=== PATIENT | female | born 1990 | race American Indian/Alaskan Native ===

== ENCOUNTER 2016-12-14 02:54 | Inpatient (IN) | payer OTHER ==
[2016-12-14] MEDS ORDERED: Acetaminophen TAB* 325 MG PO PRN (18:14)
[2016-12-14] MEDS ORDERED: Witch Hazel PAD* JAR TOPICAL PRN (18:14)
[2016-12-14] MEDS ORDERED: Dibucaine 1% 28.35 GM TUBE PR PRN (18:14)
[2016-12-14] MEDS: Ibuprofen TAB* 600 MG PO PRN (18:52)
[2016-12-14] MEDS: Docusate CAP* 100 MG PO SCH (20:38)
[2016-12-15 06:31] LABS: Hematocrit 32 % (35-47); Hemoglobin 10.5 g/dl (12.0-16.0); Mean Corpuscular HGB Conc 33 g/dl (31-36); Mean Corpuscular Hemoglobin 30 pg (27-31); Mean Corpuscular Volume 91 fL (80-97); Mean Platelet Volume 11 um3 (7.4-10.4); Red Blood Count 3.48 10^6/ul (4.0-5.4); Red Cell Distribution Width 15 % (10.5-15); White Blood Count 16.3 10^3/ul (3.5-10.8)
[2016-12-15] MEDS: Ibuprofen TAB* 600 MG PO PRN ×2 (06:31→21:32)
[2016-12-15] MEDS ORDERED: Ferrous Gluconate TAB* 324 MG TAB PO SCH (09:00)
[2016-12-15] MEDS: Docusate CAP* 100 MG PO SCH ×3 (09:08→21:32)
[2016-12-16 08:24] VITALS: BP 126/74
[2016-12-16] MEDS: Ibuprofen TAB* 600 MG PO PRN (09:45)
[2016-12-16] MEDS: Docusate CAP* 100 MG PO SCH (09:45)
== END 2016-12-16 12:20 | disposition home or self-care (01) | DRG 775 ==
LOC: MCHOBOUT 02:54 → MCHOB 09:02
PROVIDERS: ADMIT Midwife; ATTEND Midwife
PROC: 10E0XZZ Delivery of Products of Conception, External Approach (ICD-10-PCS; principal; 2016-12-14)
PROC: 0KQM0ZZ Repair Perineum Muscle, Open Approach (ICD-10-PCS; 2016-12-14)
PROC: 10907ZC Drainage of Amniotic Fluid, Therapeutic from Products of Conception, Via Natural or Artificial Opening (ICD-10-PCS; 2016-12-14)
DX: O48.0 Post-term pregnancy (principal); O69.81X0 Labor and delivery complicated by cord around neck, without compression, not applicable or unspecified; O70.1 Second degree perineal laceration during delivery; Z3A.40 40 weeks gestation of pregnancy; Z37.0 Single live birth
CPT/HCPCS: 36415; 85025; A9270-GY

== ENCOUNTER 2019-01-15 20:46 | Emergency (ER) | payer OTHER ==
[2019-01-15 20:53] VITALS: BP 129/75
--- NOTE | 2019-01-15 21:16 | UC ---
FLU HPI - HPI Summary HPI Summary: Pt is a 28 yo female, 2nd trimester. Pt's 2 yo daugher with fever, congestion last week - not tested - presumed flu. Pt presents at suggestion of nurse size worker for eval of 24 hours fatigue, low grade temp, cough - non productive, slight wheeze, nausea. no vomiting no diarrhea. No OTC meds taking Pt reports good baby meeting - no vaginal LOB Medications reviewed - History of Current Complaint Chief Complaint: UCRespiratory Stated Complaint: COUGH Time Seen by Provider: 01/15/19 21:03 Hx Obtained From: Patient ?: Yes Onset/Duration: Gradual Onset Pain Intensity: 0 - Allergy/Home Medications Allergies/Adverse Reactions: Allergies Allergy/AdvReac Type Severity Reaction Status Date / Time Penicillins Allergy Rash Verified 01/15/19 20:53 Home Medications: Home Medications Vitamin TAB* 1 tab PO DAILY 01/15/19 [History Confirmed 01/15/19] PMH/Surg Hx/FS Hx/Imm Hx Previously Healthy: Yes - Surgical History Surgical History: None - Family History Known Family History: Positive: Other - 2 yo with febrile illness last week, Non -Contributory - Social History Occupation: Employed Full-time Lives: With Family Alcohol Use: None Substance Use Type: None Smoking Status (MU): Never Smoked Tobacco - Immunization History Most Recent Influenza Vaccination: 08/2016 Most Recent Tetanus Shot: 08/2016 Most Recent Pneumonia Vaccination: none Review of Systems All Other Systems Reviewed And Are Negative: Yes Constitutional: Positive: Fever, Fatigue ENT: Positive: Nasal Discharge, Sinus Pain/Tenderness Respiratory: Positive: Cough. Negative: Shortness Of Breath Cardiovascular: Positive: Negative Gastrointestinal: Positive: Nausea. Negative: Vomiting Physical Exam - Summary Physical Exam Summary: Vital Signs Reviewed: Yes A+Ox3, no distress Eyes: Conjunctiva Clear, BASSEM. EOM intact and full ENT: Hearing grossly normal TM x 2 clear, turbinates inflammed and boggy, + PNDmmoist, uvula midline, no exudate, no erythema Neck: Positive: Supple Respiratory: Positive: No respiratory distress, No accessory muscle use speaknig full easy sentences, intermittent cough, slight end ex wheeze Cardiovascular: RRR nl s1, s2 no m/r CBT <2 sec abd soft gravid, + BS nt/nd no guarding, no distension Musculoskeletal Exam: RAYO x 4 without difficulty Strength Intact, ROM Intact Neurological: Positive: Alert, + sensation throughout Psychological: Positive: Normal Response To Family Skin: Positive: no rash, no ecchymosis Triage Information Reviewed: Yes Vital Signs: Initial Vital Signs Temp 98.5 F 01/15/19 20:50 Pulse 89 01/15/19 20:50 Resp 16 01/15/19 20:50 BP 129/75 01/15/19 20:50 Pulse Ox 100 01/15/19 20:50 Re-Evaluation - Re-Evaluation First Eval Change: Improved - Pt states breathing improved after neb wheeze resolved flu neg d/w pt prophylatic tamiflu will send Rx - pt will dw it coordinator tomorrow MDI humidified air secretion precaution strict return precautions pt comfortable and kendra greement with plan Flu Course/Dx - Course Course Of Treatment: pt with 24 hours fever, cough, congestion - here for flu test + . VSS. Pt with boggy turbinates and slight exp wheeze with cough. flu neg. will give neb an dreasses - Differential Dx/Diagnosis Provider Diagnosis: URI (upper respiratory infection), Viral syndrome Discharge - Sign-Out/Discharge Documenting (check all that apply): Patient Departure All imaging exams completed and their final reports reviewed: No Studies - Discharge Plan Condition: Stable Disposition: HOME Prescriptions: Oseltamivir Phosphate [Tamiflu] 75 mg PO DAILY #10 capsule Patient Education Materials: Upper Respiratory Infection (ED), Viral Syndrome ( ED) Referrals: Malika Queen MD [Primary Care Provider] - [facility] [Provider Group] Additional Instructions: - Stay well hydrated. Drink plenty of non-alcoholic, non-caffinated beverages. - okay to take Tylenol every 6- 8 hours for fever. You should not take ibuprofen (Advil, Motrin) at this stage of your . - These infections are spread by secretions - do NOT share eating or drinking utensils - clean items you share with other people such as cell phones, computer mouse, TV remote, computer tablets,etc. Once you start to feel better, change your toothbrush and your pillowcase. - get plenty of restful sleep - humidify the air in the room where you sleep - boil water, run a hot steam shower, vaporizer, cups of water by heat register - Use inhaler - 2 puffs every 4 hours as needed for shortness of breath or wheeze - As discussed - your influenza swap was negative for flu A + B. A prescription for Tamiflu prophylaxis was sent to your pharmacy. Discuss with your Nurse Investment Recovery Technician tomorrow if you should start taking - If you develop shortness of breath, painful breathing, or ANY other concerns you should go to the emergency department for further evaluation - contact your doctor or return with questions or concerns - Billing Disposition and Condition Condition: STABLE Disposition: Home
[2019-01-15 21:29] LABS: Influenza A Molecular NEGATIVE (Negative); Influenza B Molecular NEGATIVE (Negative)
[2019-01-15] MEDS ORDERED: Albuterol HFA INHALER* 8 gm MDI INH ONE (21:36)
== END 2019-01-15 21:50 | disposition home or self-care (01) ==
LOC: UCEAST 20:46
DX: O99.512 Diseases of the respiratory system complicating pregnancy, second trimester (principal); O98.512 Other viral diseases complicating pregnancy, second trimester; O99.89 Other specified diseases and conditions complicating pregnancy, childbirth and the puerperium; B34.9 Viral infection, unspecified; J06.9 Acute upper respiratory infection, unspecified; R11.0 Nausea; Z88.0 Allergy status to penicillin
CPT/HCPCS: 99213; A9270-GY; G0463

== ENCOUNTER 2019-03-26 06:44 | Inpatient (IN) | payer OTHER ==
--- NOTE | 2019-03-26 08:05 | HP ---
General Information - Reason for Visit 28 yo at 40 2/7 weeks with contractions beginning at 0400 - General Information Maternal Age: 28 Grav: 2 Para: 0 SAB: 0 IEA: 0 Estimated Due Date: 03/24/19 Determined By: LMP Gestational Age in Weeks/Days: 40 2/7 Maternal Blood Type and Rh: A Positive - Results this Serology/RPR Result: Non-Reactive Rubella Result: Immune HBsAg Result: Negative HIV Result: Negative GBS Culture Result: Negative Past Medical History Delivery History: Hx Uncomplicated Vaginal Delivery Pertinent Past Medical History: See Records Past Medical History Comment: UTI/Urethral dilation 02/2016 Pertinent Past Surgical History: None Pertinent Family History: See Records Family History Comment: Father: Diabetes Type 2 Mother: Anxiety, Depression, Fibromyalgia - Antepartal Records Antepartal Records: Reviewed, Uncomplicated Review of Systems Constitutional: Uncomfortable CV Complaint: No Respiratory: Shortness of Breath: No Gastrointestinal: No Nausea/Vomiting, Normal Bowel Movement Genitourinary: No Dysuria, No Bleeding, No Leaking Fluid Musculoskeletal: No Epigastric Pain, Contractions Neurological: No Headache, No Visual Changes Movement: Normal Exam Allergies/Adverse Reactions: Allergies Penicillins Allergy (Verified 03/26/19 07:37) Rash B/P: 131/77, P: 79, R: 18, T: 97.9 - Measurements Height: 5 ft 4 in Weight: 178 lb Weight in lbs: [phone] Body Mass Index (BMI): 30.5 Pre- Weight: 128 lb Weight Gained This : 50 lbs and 0 ozs - Exam Breast: Breast Exam Deferred CVA: No CVA Tenderness Extremities: No Edema Heart: Normal Rhythm/Heart Sounds HEENT: No Significant Findings Lungs: Clear Bilaterally Reflexes: DTR 2+ Thyroid: No Thyromegaly - Abdominal Exam Abdomen Exam: Non-Tender, Fundal Height Consistent with Dates - Ultrasound/Biophysical Profile Ultrasound Status: Not Done Targeted Exam Findings See L&D Outpatient Visit Provider Note for Findings: N/A Estimated Weight: 8.5 lb by david'joanna Cervical Exam: 3cm, 4cm Effacement: 90% Station: -2 Presenting Part: Vertex Membrane Status: Intact Bleeding/Discharge: None EFM Findings - External Monitor Findings Baseline Heart Rate: 125 External Monitor Findings: Accelerations Present, No Pattern of Variable or Late Decelerations, Variability Moderate, Baseline Stable Contractions: Regular, 45-90 Seconds Contraction Frequency: 2.5-4.5 min Assessment/Plan - Assessment A: IUP at 40 2/7 weeks Category I FHR, no evidence of metabolic acidemia Early active labor GBS negative P: Admit to inpatient Prefers unmedicated but open to changing mind if need arises Reassess in 3-4 hrs or sooner as indicated Anticipate SVB - Plan Plan: Admit - Anticipate Vaginal Delivery - Date/Time of Admission Date of Admission: 03/26/19 Time of Admission: 07:45
[2019-03-26] MEDS ORDERED: Acetaminophen TAB* 325 MG PO PRN (09:58)
[2019-03-26] MEDS ORDERED: Dibucaine 1% 28.35 GM TUBE PR PRN (09:58)
[2019-03-26] MEDS ORDERED: Glycerin ADULT SUPP PR PRN (09:58)
[2019-03-26] MEDS ORDERED: Witch Hazel PAD* JAR TOPICAL PRN (09:58)
[2019-03-26] MEDS ORDERED: Lactated Ringers 1000 ML Bag* 1,000 ML IV SCH (10:00)
[2019-03-26] MEDS ORDERED: Ibuprofen TAB* 600 MG ONE (10:05)
[2019-03-26] MEDS: Ibuprofen TAB* 600 MG PO PRN ×2 (10:07→16:01)
--- NOTE | 2019-03-26 11:33 | PROCNOTE ---
[facility] OB: Delivery Note - Delivery A Date of : 03/26/19 Time of : 09:24 [place] Sex: Male Score 1 Minute: 9 Score 5 Minutes: 9 Gestational Age in Weeks and Days at Delivery: 40 Weeks and 2 Days Delivery Method: Spontaneous Vaginal Labor: Spontaneous Did Patient attempt ?: N/A, No Previous Amniotic Fluid: Clear Estimated Blood Loss: 350 Anesthesia/Analgesia: None Delivered By: Brianna De Santiago - Nursery Level of Nursery: Regular/Bedside - Perineum Perineal Injury: 1st Degree Perineal Repair: By Delivering Practioner - Events Delivery Events of Note: None Apply - Additional Delivery Notes Additional Delivery Notes: at 40 2/7 weeks in spontaneous labor with SROM to clear fluid at 0900 was found to be complete and complete. Began spontaneously pushing at 0918 in hands -knees with good maternal effort. Infant crowned, slow controlled delivery of head OA to BUDDY at 0924, loose nuchal x 2 reduced and shoulders followed easily with next push. Infant delivered through maternal legs to abdomen. Tactile stim to pink, spontaneous cry and HR >110. Apgars 9 and 9. Cord clamped x 2 and cut by FOB once pulsations ceased. Intact elsy placenta at 0933. Fundus firm with massage. Perineum inspected, first degree laceration noted, repaired with 3.0 vicryl rapide. Mother and infant in stable condition at time of note, initiated. RVS=140 cc
[2019-03-26] MEDS ORDERED: Simethicone TAB* 80 MG TAB.CHEW PO SCH (12:30)
[2019-03-26] MEDS: Docusate CAP* 100 MG PO SCH ×2 (16:01→21:21)
[2019-03-27] MEDS: Ibuprofen TAB* 600 MG PO PRN (01:36)
[2019-03-27 08:20] LABS: ABS Eosinophils 0.1 10^3/ul (0-0.6); ABS Lymphocytes 1.7 10^3/ul (1.0-4.8); ABS Monocytes 0.7 10^3/ul (0-0.8); ABS Neutrophils 8.1 10^3/ul (1.5-7.7); Eosinophil % 1.3 %; Hematocrit 34 % (35-47); Hemoglobin 11.3 g/dL (12.0-16.0); Lymphocyte % 15.6 %; Mean Corpuscular HGB Conc 34 g/dL (31-36); Mean Corpuscular Hemoglobin 30 pg (27-31); Mean Corpuscular Volume 90 fL (80-97); Mean Platelet Volume 10.3 fL (7.4-10.4); Platelet Count 150 10^3/uL (150-450); Red Blood Count 3.73 10^6 /uL (3.70-4.87); Red Cell Distribution Width 15 % (10.5-15); White Blood Count 10.6 10^3/uL (3.5-10.8)
[2019-03-27] MEDS: Docusate CAP* 100 MG PO SCH ×2 (08:42→14:34)
[2019-03-27 08:57] VITALS: BP 123/80
[2019-03-27] MEDS ORDERED: Ferrous Gluconate TAB* 324 MG TAB PO SCH (09:00)
== END 2019-03-27 15:43 | disposition home or self-care (01) | DRG 807 ==
LOC: MCHOBOUT 06:44 → MCHOB 08:05
PROVIDERS: ADMIT Midwife; ATTEND Midwife
PROC: 10E0XZZ Delivery of Products of Conception, External Approach (ICD-10-PCS; principal; 2019-03-26)
PROC: 4A1HXCZ Monitoring of Products of Conception, Cardiac Rate, External Approach (ICD-10-PCS; 2019-03-26)
PROC: 0HQ9XZZ Repair Perineum Skin, External Approach (ICD-10-PCS; 2019-03-26)
DX: O48.0 Post-term pregnancy (principal); O69.81X0 Labor and delivery complicated by cord around neck, without compression, not applicable or unspecified; O70.0 First degree perineal laceration during delivery; Z37.0 Single live birth; Z3A.40 40 weeks gestation of pregnancy; Z88.0 Allergy status to penicillin
CPT/HCPCS: 36415; 85025; A9270-GY